=== PATIENT | male | born 1955 | race Caucasian/White ===

== ENCOUNTER 2020-10-19 14:17 | Observation (INO) ==
[2020-10-19] MEDS ORDERED: Melatonin 3 MG TABLET PO PRN (17:06)
[2020-10-19] MEDS ORDERED: Naloxone 0.4 MG/ML INJ IVP PRN (17:06)
[2020-10-19] MEDS ORDERED: Acetaminophen 325 MG TABLET PO PRN (17:06)
[2020-10-19] MEDS ORDERED: Ondansetron 4 MG/2 ML VIAL IVP PRN (17:06)
[2020-10-19] MEDS ORDERED: Mag Hydrox/Al Hydrox/Simeth 30 ML UDC PO PRN (17:06)
[2020-10-19] MEDS ORDERED: *HR* OxyCODONE/APAP 10/325 TABLET PO PRN (17:10)
[2020-10-19] MEDS ORDERED: D5% in Water 1,000 ML IVC PRN (17:11)
[2020-10-19] MEDS ORDERED: Dextrose Gel 15 GM/37.5 ML TUBE PO PRN ×2 (17:11)
[2020-10-19] MEDS ORDERED: *HR* Dextrose 50 % in Water (Vial) 50 ML VIAL IVP PRN (17:11)
[2020-10-19] MEDS ORDERED: hydrALAZINE 25 MG TABLET PO ONE (17:12)
[2020-10-19] MEDS ORDERED: amLODIPine 5 MG TABLET PO ONE (17:13)
[2020-10-19] MEDS ORDERED: Ipratropium Neb 0.5 MG NEBULIZER IH PRN (17:14)
[2020-10-19] MEDS: Insulin LISPRO 300 UNITS/3 ML VIAL SUBQ SCH ×2 (17:41→21:43)
[2020-10-19] MEDS: MethylPREDNISolone 40 MG/ML VIAL IVP SCH (17:41)
[2020-10-19] MEDS ORDERED: Perflutren Lipid Microsphere 1.3 ML in 0.9 % Sodium Chloride 8.7 ML IVP PRN (18:18)
[2020-10-19] MEDS: Ipratropium/Albuterol Neb 3 ML IH SCH ×2 (18:19→23:23)
[2020-10-19 20:17] LABS: Adenovirus Not Detected (Not Detect); Bordetella Pertussis Not Detected (Not Detect); Chlamydophila pneumoniae Not Detected (Not Detect); Coronavirus 229E Not Detected (Not Detect); Coronavirus HKU1 Not Detected (Not Detect); Coronavirus NL63 Not Detected (Not Detect); Coronavirus OC43 Not Detected (Not Detect); Human Metapneumovirus Not Detected (Not Detect); Human Rhinovirus/Enterovirus Not Detected (Not Detect); Influenza A Subtype 2009 H1 Not Detected (Not Detect); Influenza B Not Detected (Not Detect); Mycoplasma pneumoniae Not Detected (Not Detect); Parainfluenza Virus 1 Not Detected (Not Detect); Parainfluenza Virus 2 Not Detected (Not Detect); Parainfluenza Virus 3 Not Detected (Not Detect); Parainfluenza Virus 4 Not Detected (Not Detect); Respiratory Syncytial Virus Not Detected (Not Detect); SARS-CoV-2 Not Detected (Not Detect)
[2020-10-19] MEDS: Azithromycin 500 MG in 0.9 % Sodium Chloride 250 ML IVPB SCH (21:42)
[2020-10-19] MEDS: Insulin DETEMIR 100 UNIT/ML X5UNITS SUBQ SCH (21:43)
[2020-10-19] MEDS: Gabapentin 300 MG CAPSULE PO SCH (22:27)
[2020-10-20] MEDS: *HR* OxyCODONE/APAP 10/325 TABLET PO PRN ×3 (02:09→20:17)
[2020-10-20] MEDS: Ipratropium/Albuterol Neb 3 ML IH SCH ×4 (03:44→22:07)
[2020-10-20] MEDS: ALPRAZolam 0.5 MG TABLET PO PRN (06:11)
[2020-10-20] MEDS ORDERED: Methyl Salicylate/Menthol 85 APPL/85 GM TUBE TP PRN (06:42)
[2020-10-20 06:45] LABS: Basophils # 0.1 K/mcL (0.0-0.2); Basophils % 0.5 %; Eosinophils % 0.2 %; Hematocrit 33.9 % (37.5-50.1); Immature Granulocytes % 4.3 % (0-4); Mean Corpuscular HGB Conc 32.4 g/dL (31.6-35.5); Mean Corpuscular Volume 89.4 fL (83.0-100.0); Mean Platelet Volume 10.3 fL (9.4-12.4); Monocytes # 0.7 K/mcL (0.0-1.3); Monocytes % 4.5 %; Neutrophils # 12.9 K/mcL (1.6-8.9); Platelet Count 269 K/mcL (140-400); Red Blood Count 3.79 M/mcL (4.19-5.50); Red Cell Distribution Width 13.9 % (11.5-14.5); Segmented Neutrophils % 78.5 %; White Blood Count 16.4 K/mcL (4.3-11.1)
[2020-10-20 07:02] LABS: Estimated Average Glucose 148 mg/dl; Hemoglobin A1C 6.8 %
[2020-10-20 07:28] LABS: BUN/Creatinine Ratio 27 (6-26); Blood Urea Nitrogen 34 mg/dL (8-23); Calcium 7.6 mg/dL (8.6-10.3); Carbon Dioxide 27 mEq/L (23-29); Chloride 101 mEq/L (98-107); Glucose 292 mg/dL (70-105); Osmolality,Calculated 304 (280-300); Phosphorous 4.1 mg/dL (2.7-4.5); Potassium 4.2 mEq/L (3.5-5.1); Sodium 138 mEq/L (136-145); eGFR For African Americans > 60 (> 60); eGFR For Non-African Americans 58 (> 60)
[2020-10-20] MEDS: MethylPREDNISolone 40 MG/ML VIAL IVP SCH (08:26)
[2020-10-20] MEDS: amLODIPine 5 MG TABLET PO SCH ×2 (08:27→20:18)
[2020-10-20] MEDS: Artificial Tears SOLN 15 ML BOTTLE BOTH EYES SCH ×3 (08:28→20:19)
[2020-10-20] MEDS: Insulin DETEMIR 100 UNIT/ML X5UNITS SUBQ SCH ×2 (08:28→20:30)
[2020-10-20] MEDS: Insulin LISPRO 300 UNITS/3 ML VIAL SUBQ SCH ×4 (08:28→20:20)
[2020-10-20] MEDS ORDERED: hydrALAZINE 25 MG TABLET PO SCH (09:00)
[2020-10-20] MEDS: Ibuprofen 400 MG TABLET PO PRN (09:33)
[2020-10-20] MEDS: Gabapentin 300 MG CAPSULE PO SCH ×3 (10:03→20:18)
[2020-10-20] MEDS ORDERED: LACTASE 3000 UNIT PO PRN (14:32)
[2020-10-20] MEDS ORDERED: polyethylene glycoL 3350 17 GM POWD.PACK PO PRN (14:32)
[2020-10-20] MEDS ORDERED: Furosemide 40 MG TABLET PO ONE (14:34)
[2020-10-20] MEDS ORDERED: Magnesium Oxide 400 MG TABLET PO SCH (15:30)
[2020-10-20] MEDS: hydrALAZINE 25 MG TABLET PO SCH ×2 (16:05→20:17)
[2020-10-20] MEDS: Furosemide 40 MG TABLET PO SCH (17:10)
[2020-10-20] MEDS: traZODone 50 MG TABLET PO SCH (20:17)
[2020-10-20] MEDS: Azithromycin 500 MG in 0.9 % Sodium Chloride 250 ML IVPB SCH (20:18)
[2020-10-20] MEDS: Budesonide/Formoterol 160/4.5 1 PUFF INH IH SCH (22:07)
[2020-10-21] MEDS: Ipratropium/Albuterol Neb 3 ML IH SCH ×4 (03:51→22:24)
[2020-10-21] MEDS: Aspirin Enteric Coated 81 MG Tablet PO SCH (08:44)
[2020-10-21] MEDS: amLODIPine 5 MG TABLET PO SCH ×2 (08:44→20:07)
[2020-10-21] MEDS: Metoprolol XL (24 HR) Succ 50 MG TAB.ER.24H PO SCH (08:44)
[2020-10-21] MEDS: hydrALAZINE 25 MG TABLET PO SCH ×3 (08:44→20:05)
[2020-10-21] MEDS: Gabapentin 300 MG CAPSULE PO SCH ×3 (08:44→20:05)
[2020-10-21] MEDS: lisinopriL 20 MG TABLET PO SCH (08:44)
[2020-10-21] MEDS: Loratadine 10 MG TABLET PO SCH (08:45)
[2020-10-21] MEDS: Insulin LISPRO 300 UNITS/3 ML VIAL SUBQ SCH ×4 (08:45→21:38)
[2020-10-21] MEDS: Artificial Tears SOLN 15 ML BOTTLE BOTH EYES SCH ×3 (08:46→20:07)
[2020-10-21] MEDS: *HR* OxyCODONE/APAP 10/325 TABLET PO PRN ×2 (09:49→21:45)
[2020-10-21] MEDS: Furosemide 40 MG TABLET PO SCH ×2 (09:49→16:22)
[2020-10-21] MEDS: Ibuprofen 400 MG TABLET PO PRN (09:49)
[2020-10-21] MEDS: Insulin DETEMIR 100 UNIT/ML X5UNITS SUBQ SCH ×2 (09:51→21:46)
[2020-10-21] MEDS: MethylPREDNISolone 40 MG/ML VIAL IVP SCH (09:53)
[2020-10-21] MEDS: Budesonide/Formoterol 160/4.5 1 PUFF INH IH SCH ×2 (11:07→22:24)
[2020-10-21 11:19] LABS: Basophils # 0.2 K/mcL (0.0-0.2); Basophils % 0.8 %; Eosinophils # 0.4 K/mcL (0.0-0.6); Hematocrit 39.8 % (37.5-50.1); Immature Granulocytes % 3.2 % (0-4); Lymphocytes # 1.4 K/mcL (0.6-4.6); Lymphocytes % 7.4 %; Mean Corpuscular HGB Conc 30.2 g/dL (31.6-35.5); Mean Corpuscular Hemoglobin 28.1 pg (28.0-33.3); Mean Corpuscular Volume 93.2 fL (83.0-100.0); Monocytes # 0.7 K/mcL (0.0-1.3); Monocytes % 3.9 %; Neutrophils # 15.1 K/mcL (1.6-8.9); Platelet Count 296 K/mcL (140-400); Red Blood Count 4.27 M/mcL (4.19-5.50); Red Cell Distribution Width 14.6 % (11.5-14.5); Segmented Neutrophils % 82.7 %; White Blood Count 18.3 K/mcL (4.3-11.1)
[2020-10-21 11:38] LABS: BUN/Creatinine Ratio 25 (6-26); Blood Urea Nitrogen 31 mg/dL (8-23); Calcium 8.1 mg/dL (8.6-10.3); Carbon Dioxide 30 mEq/L (23-29); Chloride 99 mEq/L (98-107); Glucose 269 mg/dL (70-105); Osmolality,Calculated 302 (280-300); Sodium 138 mEq/L (136-145); eGFR For African Americans > 60 (> 60); eGFR For Non-African Americans 58 (> 60)
[2020-10-21] MEDS: ALPRAZolam 0.5 MG TABLET PO PRN (11:55)
[2020-10-21] MEDS ORDERED: Furosemide 40 MG TABLET PO SCH (12:00)
[2020-10-21 16:04] VITALS: TEMP 97.8
[2020-10-21] MEDS: traZODone 50 MG TABLET PO SCH (20:04)
[2020-10-21] MEDS: Azithromycin 500 MG in 0.9 % Sodium Chloride 250 ML IVPB SCH (20:06)
[2020-10-22 02:18] LABS: Basophils # 0.1 K/mcL (0.0-0.2); Basophils % 0.6 %; Eosinophils # 0.2 K/mcL (0.0-0.6); Eosinophils % 1.4 %; Hematocrit 34.4 % (37.5-50.1); Hemoglobin 10.5 g/dL (12.9-16.9); Lymphocytes # 2.8 K/mcL (0.6-4.6); Lymphocytes % 15.8 %; Mean Corpuscular HGB Conc 30.5 g/dL (31.6-35.5); Mean Corpuscular Volume 91.7 fL (83.0-100.0); Mean Platelet Volume 10.1 fL (9.4-12.4); Monocytes # 1.3 K/mcL (0.0-1.3); Monocytes % 7.5 %; Neutrophils # 12.6 K/mcL (1.6-8.9); Platelet Count 263 K/mcL (140-400); Red Blood Count 3.75 M/mcL (4.19-5.50); Red Cell Distribution Width 14.5 % (11.5-14.5); Segmented Neutrophils % 71.7 %; White Blood Count 17.5 K/mcL (4.3-11.1)
[2020-10-22 02:38] LABS: Calcium 7.5 mg/dL (8.6-10.3); Potassium 3.9 mEq/L (3.5-5.1)
[2020-10-22] MEDS: Ipratropium/Albuterol Neb 3 ML IH SCH ×2 (04:01→09:55)
[2020-10-22 08:46] VITALS: BP 165/75; PULSE 73
[2020-10-22] MEDS ORDERED: predniSONE 20 MG TABLET PO SCH (09:00)
[2020-10-22] MEDS: Insulin LISPRO 300 UNITS/3 ML VIAL SUBQ SCH (09:20)
[2020-10-22] MEDS: Aspirin Enteric Coated 81 MG Tablet PO SCH (09:27)
[2020-10-22] MEDS: lisinopriL 20 MG TABLET PO SCH (09:27)
[2020-10-22] MEDS: Gabapentin 300 MG CAPSULE PO SCH (09:27)
[2020-10-22] MEDS: Loratadine 10 MG TABLET PO SCH (09:28)
[2020-10-22] MEDS: Metoprolol XL (24 HR) Succ 50 MG TAB.ER.24H PO SCH (09:28)
[2020-10-22] MEDS: hydrALAZINE 25 MG TABLET PO SCH (09:28)
[2020-10-22] MEDS: amLODIPine 5 MG TABLET PO SCH (09:28)
[2020-10-22] MEDS: Artificial Tears SOLN 15 ML BOTTLE BOTH EYES SCH (09:29)
[2020-10-22] MEDS: Insulin DETEMIR 100 UNIT/ML X5UNITS SUBQ SCH (09:29)
[2020-10-22] MEDS: Budesonide/Formoterol 160/4.5 1 PUFF INH IH SCH (09:55)
[2020-10-22] MEDS: *HR* OxyCODONE/APAP 10/325 TABLET PO PRN (10:20)
[2020-10-22 11:38] VITALS: O2SAT 96
== END 2020-10-22 11:35 | disposition home or self-care (01) ==
LOC: CDU → SUATTDRO 15:17 → 3ANU 10-21 15:58
PROVIDERS: ADMIT Internal Medicine; ATTEND Internal Medicine